=== PATIENT | female | born 1960 | race Caucasian/White ===

== ENCOUNTER 2020-06-20 15:01 | Emergency (ER) | payer BC ==
--- NOTE | 2020-06-20 15:40 | EDM.PDOC ---
ED HPI GENERAL MEDICAL PROBLEM - General Chief Complaint: Skin Complaint Stated Complaint: SEEPAGE Time Seen by Provider: 06/20/20 15:25 Source of Information: Reports: Patient, Family, Old Records, RN History Limitations: Reports: No Limitations - History of Present Illness INITIAL COMMENTS - FREE TEXT/NARRATIVE: 59 yo female with endstage CA now on hospice was referred to the ER today for increased drainage from a tumor on her R upper/anterior chest. Onset: Gradual Duration: Day(s):, Getting Worse Location: Reports: Chest Quality: Reports: Dull Severity: Mild Improves with: Reports: None Worsens with: Reports: Other (time) Context: Reports: Other (See HPI) Associated Symptoms: Reports: No Other Symptoms Treatments IMMUNOLOGY SPECIALIST: Reports: Other (see below) (none) - Related Data Allergies Allergy/AdvReac Type Severity Reaction Status Date / Time azithromycin Allergy Rash Verified 05/09/20 10:11 ED ROS GENERAL - Review of Systems Review Of Systems: See Below Constitutional: Reports: No Symptoms Skin: Reports: Wound (surgical wound R upper/anterior chest with drainage.) ED EXAM, SKIN/RASH Exam: See Below Exam Limited By: No Limitations General Appearance: Alert, No Apparent Distress, Thin Skin: Warm, Dry, Normal Color, No Rash, Wound/Incision (There is a large tumor present to the R upper chest. At the lower edge of this tumor is a surgical wound that is about 1 cm in length and linear/horizontal. There is dark, bloody drainage from this wound that is greater than the absorptive capacity of her current dressing so that it has drained onto her clothing. ) Location, Skin: Chest Characteristics: Linear Associated features: No: Warmth, Lymphangitis Course - Vital Signs Text/Narrative:: Wound cleaned and dressing changed by RN. Last Recorded V/S: Last Vital Signs Temp 36.4 C 06/20/20 15:01 Pulse 101 H 06/20/20 15:01 Resp 20 06/20/20 15:01 BP 102/73 06/20/20 15:01 Pulse Ox 96 06/20/20 15:01 Departure - Departure Time of Disposition: 16:00 Disposition: Home, Self-Care 01 Condition: Good Clinical Impression: Wound drainage - Discharge Information *PRESCRIPTION DRUG MONITORING PROGRAM REVIEWED*: Not Applicable *COPY OF PRESCRIPTION DRUG MONITORING REPORT IN PATIENT REJI: Not Applicable Referrals: Vidhya Berrios PA-C [Primary Care Provider] - Forms: ED Department Discharge Additional Instructions: Change the dressing as needed to catch the accumulating wound drainage. Stay in touch with your doctor regarding any concerns that arise. Sepsis Event Note (ED) - Evaluation Sepsis Screening Result: No Definite Risk - Focused Exam Vital Signs: Vital Signs Temp Pulse Resp BP Pulse Ox 06/20/20 15:01 36.4 C 101 H 20 102/73 96
== END 2020-06-20 16:15 | disposition home or self-care (01) ==
LOC: FB.ED 15:01
DX: L76.22 Postprocedural hemorrhage of skin and subcutaneous tissue following other procedure (principal); Z88.0 Allergy status to penicillin
CPT/HCPCS: 99282

== ENCOUNTER 2020-06-25 04:53 | Emergency (ER) | payer SELFPAY ==
--- NOTE | 2020-06-25 05:48 | EDM.PDOC ---
ED HPI GENERAL MEDICAL PROBLEM - General Chief Complaint: General Time Seen by Provider: 06/25/20 05:35 Source of Information: Reports: Patient, Family (Patient's ) History Limitations: Reports: Other (Patient has tracheostomy.) - History of Present Illness INITIAL COMMENTS - FREE TEXT/NARRATIVE: 59-year-old female with metastatic, terminal head and neck cancer is status post nail 06/15/2020 who presents to the emergency department via private vehicle with her secondary to his shortness of breath with secretions in her trachea. They have been set up with home suctioning and the reports that he was really never trained how to do this or shown how to do this and the patient did begin to have some secretions and some upper airway noise and sounds yesterday at about noon and he attempted to suction the patient and was unable to get any secretions out. He states that he had the home health nurse telling him how to do this over the phone he was really sure that he was doing it correctly. He tried again at about 8 PM last night and was again unable to get any secretions with suctioning. This morning at approximately 4 AM the patient was having worse gurgling with breathing and asked her to bring her to the emergency department for assistance. Upon arrival here her O2 saturations are 97% on room air and she had no increased work of breathing. There were upper airway sounds and she did sound as if she needed to be suctioned. I did discuss this at some length with the patient and with the patient's and the patient has not set up for hospice as yet, that is her intentions. She and her wound really only one her to be suctioned and for the to have some training in suctioning the tracheostomy and care of the tracheostomy. She really is having no new pain and not really able to quantitate or qualitate this. There are no other associated signs or symptoms. There are no other modifying factors. Onset: Other Duration: Constant Location: Reports: Other (No pain) Quality: Reports: Other (Not applicable.) Improves with: Reports: None Worsens with: Reports: None Context: Reports: Other (As above.) Associated Symptoms: Reports: No Other Symptoms Treatments LINING BASTER: Reports: Other (see below) (Nothing.) - Related Data Allergies Allergy/AdvReac Type Severity Reaction Status Date / Time azithromycin Allergy Rash Verified 05/09/20 10:11 Home Meds: Home Meds Acetaminophen [Tylenol 160 MG/5 ML Liq] 20 ml PO Q4HR PRN 06/25/20 [History] Ibuprofen 400 mg PO Q6H PRN 06/25/20 [History] oxyCODONE HCl [Oxycodone HCl] 5 mg PO Q3H PRN 06/25/20 [History] Past Medical History HEENT History: Reports: Sinusitis Other HEENT History: hx throat CA, has trach. Respiratory History: Reports: COPD Oncologic (Cancer) History: Reports: Metastatic, Other (See Below) Other Oncologic History: hx throat CA, has trach - Infectious Disease History Infectious Disease History: Reports: Chicken Pox, Measles, Mumps - Past Surgical History Respiratory Surgical History: Reports: Tracheostomy Social & Family History - Tobacco Use Tobacco Use Status *Q: Former Tobacco User - Caffeine Use Caffeine Use: Reports: None - Alcohol Use Alcohol Use History: No - Recreational Drug Use Recreational Drug Use: No - Living Situation & Occupation Living situation: Reports: ED ROS GENERAL - Review of Systems Review Of Systems: See Below Constitutional: Reports: No Symptoms HEENT: Reports: Other (Oral secretions) Respiratory: Reports: Shortness of Breath (Secondary to trachea secretions. He appears in no acute respiratory distress at present.) Cardiovascular: Reports: No Symptoms Endocrine: Reports: No Symptoms GI/Abdominal: Reports: No Symptoms : Reports: No Symptoms Musculoskeletal: Reports: No Symptoms Skin: Reports: No Symptoms Neurological: Reports: No Symptoms Hematologic/Lymphatic: Reports: No Symptoms ED EXAM, GENERAL - Physical Exam Exam: See Below Exam Limited By: No Limitations General Appearance: Alert, Mild Distress, Cachetic, Other (Appears in some pain) Eye Exam: Bilateral Eye: EOMI, Normal Inspection Ears: Normal External Exam, Hearing Grossly Normal Ear Exam: Bilateral Ear: Auricle Normal Nose: Normal Inspection, Normal Mucosa, No Blood Throat/Mouth: Other (Take aspirin and placed) Head: Atraumatic, Normocephalic Neck: Supple, Full Range of Motion Respiratory/Chest: No Respiratory Distress, Lungs Clear (There are some upper ai rway noises.) Cardiovascular: Normal Peripheral Pulses, Regular Rate, Rhythm, No Murmur Peripheral Pulses: 2+: Radial (L), Radial (R) GI/Abdominal: Normal Bowel Sounds, Soft, Non-Tender Back Exam: Normal Inspection, Full Range of Motion Extremities: Normal Inspection, Normal Range of Motion, No Pedal Edema, Normal Capillary Refill Neurological: Alert, Oriented, CN II-XII Intact, Normal Cognition, No Motor/Sensory Deficits Psychiatric: Depressed Mood Skin Exam: Warm, Dry, Intact, Normal Color, No Rash Course - Vital Signs Last Recorded V/S: Last Vital Signs Temp 35.6 C L 06/25/20 05:06 Pulse 105 H 06/25/20 05:06 Resp 20 06/25/20 05:06 BP 118/66 06/25/20 05:06 Pulse Ox 97 06/25/20 05:06 - Re-Assessments/Exams Free Text/Narrative Re-Assessment/Exam: 06/25/20 06:00: I had discussed with the patient and with her significant other about the level of care than they were and really the patient is heading toward completion for hospice cares and they would want help with suctioning her trach the needs instruction on suctioning the tracheostomy. Therefore, the nursing staff has used are portable suction device which is very much like their home suction device to show the suctioning of the trachea and there was quite a bit of secretions that were obtained and the patient felt much better following this and she sounded much better. She remains respiratory stable. The patient is stable for discharge at this point. Departure - Departure Time of Disposition: 06:08 Disposition: Home, Self-Care 01 Condition: Fair (Improved) Clinical Impression: Head and neck cancer, End stage management - Discharge Information Instructions: Palliative Care Referrals: PCP,None [Primary Care Provider] - Forms: ED Department Discharge Additional Instructions: Suctioning of the tracheostomy and care of the tracheostomy as shown by the emergency department nursing staff. Follow-up with the home health nurse. Sepsis Event Note (ED) - Evaluation Sepsis Screening Result: No Definite Risk - Focused Exam Vital Signs: Vital Signs Temp Pulse Resp BP Pulse Ox 06/25/20 05:06 35.6 C L 105 H 20 118/66 97
== END 2020-06-25 06:15 | disposition home or self-care (01) ==
LOC: FB.ED 04:53
CPT/HCPCS: 99283

== ENCOUNTER 2020-06-27 10:10 | Inpatient (IN) | payer BC ==
[2020-06-27] MEDS ORDERED: Morphine 2 MG/ML SYRINGE IVPUSH ONE (10:40)
--- NOTE | 2020-06-27 10:49 | EDM.PDOC ---
ED HPI GENERAL MEDICAL PROBLEM - General Stated Complaint: FELL, WEAK Time Seen by Provider: 06/27/20 10:30 Source of Information: Reports: Patient History Limitations: Reports: No Limitations - History of Present Illness INITIAL COMMENTS - FREE TEXT/NARRATIVE: Patient presented to the ED with her because of generalized body weakness and pain. She is taking oxycodone for pain but is not enough to control her pain. 2 days ago she fell and hit her head buts was not evaluated in the ED. There was no LOC after the fall. She was diagnosed with stage 4 head/neck cancer October of 2019. She underwent surgery,chemotherapy, and radiation and now she is on palliative care at home. A home health nurse visits her one a week and her does the remaining care. Family can't take care of her anymore and wanted her to be under hospice care in the [facility] setting. right chest Pain Score (Numeric/FACES): 4 - Related Data Allergies Allergy/AdvReac Type Severity Reaction Status Date / Time azithromycin Allergy Rash Verified 06/27/20 10:51 Home Meds: Home Meds Ibuprofen 400 mg GTUBE Q6H PRN 06/25/20 [History] oxyCODONE HCl [Oxycodone HCl] 5 mg GTUBE Q3H PRN 06/25/20 [History] Acetaminophen [Tylenol] 650 mg GTUBE Q4H PRN 06/28/20 [History] Cetirizine [ZyrTEC] 10 mg GTUBE DAILY 06/28/20 [History] Gabapentin 125 mg GTUBE BID 06/28/20 [History] LORazepam [Ativan] 1 mg GTUBE Q4H PRN 06/28/20 [History] Montelukast Sodium [Singulair] 10 mg GTUBE DAILY 06/28/20 [History] Ondansetron [Ondansetron ODT] 4 mg GTUBE Q6H PRN 06/28/20 [History] Prochlorperazine [Compazine] 10 mg GTUBE Q6H PRN 06/28/20 [History] Simvastatin 20 mg GTUBE BEDTIME 06/28/20 [History] Triamcinolone Acetonide [Nasacort] 1 puff INH DAILY 06/28/20 [History] buPROPion HCL [Bupropion HCl Sr] 300 mg GTUBE DAILY 06/28/20 [History] metroNIDAZOLE [metroNIDAZOLE 0.75% Gel] 1 dose TOP Q12H PRN 06/28/20 [History] polyethylene glycoL 3350 [Polyethylene Glycol 3350] 17 gm GTUBE DAILY PRN 06/28/20 [History] Past Medical History HEENT History: Reports: Sinusitis Other HEENT History: hx throat CA, has trach. Respiratory History: Reports: COPD Oncologic (Cancer) History: Reports: Metastatic, Other (See Below) Other Oncologic History: hx throat CA, has trach - Infectious Disease History Infectious Disease History: Reports: Chicken Pox, Measles, Mumps - Past Surgical History Head Surgeries/Procedures: Reports: None HEENT Surgical History: Reports: Other (See Below) Other HEENT Surgeries/Procedures: has trach Respiratory Surgical History: Reports: Tracheostomy Social & Family History - Family History Family Medical History: No Pertinent Family History - Caffeine Use Caffeine Use: Reports: None - Living Situation & Occupation Living situation: Reports: ED ROS GENERAL - Review of Systems Review Of Systems: See Below Constitutional: Reports: Weakness HEENT: Reports: No Symptoms Respiratory: Reports: No Symptoms Cardiovascular: Reports: No Symptoms Endocrine: Reports: No Symptoms GI/Abdominal: Reports: No Symptoms : Reports: No Symptoms Musculoskeletal: Reports: No Symptoms Skin: Reports: Wound Psychiatric: Reports: No Symptoms Hematologic/Lymphatic: Reports: No Symptoms ED EXAM, GENERAL - Physical Exam Exam: See Below Exam Limited By: No Limitations General Appearance: Alert, No Apparent Distress Ears: Normal External Exam, Normal Canal Nose: Normal Inspection, Normal Mucosa, No Blood Throat/Mouth: Normal Inspection, Normal Lips, Normal Teeth Head: Atraumatic, Normocephalic Neck: Supple, Non-Tender (tracheostomy tube in place), Other Cardiovascular: Normal Peripheral Pulses, Regular Rate, Rhythm, No Edema GI/Abdominal: Normal Bowel Sounds, Soft, Non-Tender, No Organomegaly Back Exam: Normal Inspection, Full Range of Motion Extremities: Normal Inspection, Normal Range of Motion, Non-Tender Neurological: Alert, Oriented Psychiatric: Depressed Mood Skin Exam: Warm, Other (open wound on the right ant chest draining with serosanguinous fluid and some pus) Course - Vital Signs Text/Narrative:: Labs/CXR result was discussed with aptient and her Morphine 1 mg IV NS 1 L bolus KCL 20 meq IV Last Recorded V/S: Last Vital Signs Temp 36.3 C 06/28/20 00:13 Pulse 108 H 06/28/20 00:13 Resp 16 06/28/20 00:13 BP 86/58 L 06/28/20 00:13 Pulse Ox 90 L 06/28/20 00:13 - Orders/Labs/Meds Orders: Active Orders 24 hr Category Date Time Status Sodium Chloride 0.9% [Saline Flush] Med 06/27/20 10:39 Active 10 ml FLUSH ASDIRECTED PRN Saline Lock Insert [OM.PC] Routine Oth 06/27/20 10:39 Ordered Medication Orders Ibuprofen (Motrin 100 Mg/5 Ml Susp) 400 mg GTUBE TID [facility] Last Admin: 06/28/20 09:15 Dose: 400 mg Documented by: Admin: 06/27/20 20:53 Dose: 400 mg Documented by: KRYSTINA Morphine Sulfate (Morphine) 2 mg IVPUSH Q2H PRN PRN Reason: Pain Last Admin: 06/28/20 09:06 Dose: 2 mg Documented by: Admin: 06/28/20 01:40 Dose: 2 mg Documented by: Admin: 06/27/20 15:39 Dose: 2 mg Documented by: DAV Morphine Sulfate (Morphine) 7.5 mg GTUBE Q6H [facility] Last Admin: 06/28/20 09:12 Dose: 7.5 mg Documented by: DAV Sodium Chloride (Saline Flush) 10 ml FLUSH ASDIRECTED PRN PRN Reason: Keep Vein Open Last Admin: 06/28/20 09:19 Dose: 10 ml Documented by: DAV Labs: Laboratory Tests 06/27/20 06/27/20 06/27/20 Range/Units 10:55 10:55 11:15 WBC 17.0 H (3.0-10.3) x10-3/uL RBC 3.96 (3.60-5.20) x10(6)uL Hgb 11.0 L (11.4-15.5) g/dL Hct 36.0 (34.2-48.2) % MCV 91.0 (76.7-100.5) fL MCH 27.6 (23.9-33.9) pg MCHC 30.4 L (31.9-34.8) g/dL RDW 16.1 (12.3-16.5) % Plt Count 204 (151-488) x10(3)uL MPV 10.0 (7.1-12.4) fL Add Manual Diff Yes Neutrophils % (Manual) 75 (46-82) % Band Neutrophils % 11 H (0-6) % Lymphocytes % (Manual) 9 L (13-37) % Monocytes % (Manual) 5 (4-12) % Sodium 158 H (135-145) mmol/L Potassium 2.6 L* (3.5-5.3) mmol/L Chloride 113 H (100-110) mmol/L Carbon Dioxide 36 H (21-32) mmol/L BUN 85 H (7-18) mg/dL Creatinine 1.8 H (0.55-1.02) mg/dL Est Cr Clr Drug Dosing 19.75 mL/min Estimated GFR (MDRD) 29 L (>60) BUN/Creatinine Ratio 47.2 H (9-20) Glucose 154 H (80-116) mg/dL Calcium 17.4 H* (8.6-10.2) mg/dL Total Bilirubin 0.4 (0.1-1.3) mg/dL AST 23 (5-25) IU/L ALT 34 (12-36) U/L Alkaline Phosphatase 201 H (56-112) IU/L Total Protein 7.1 (6.0-8.0) g/dL Albumin 2.2 L (3.5-5.2) g/dL Globulin 4.9 g/dL Albumin/Globulin Ratio 0.5 SARS-CoV-2 RNA (MILAGROS) Negative (NEGATIVE) Meds: Medications Generic Name Dose Route Start Last Admin Trade Name Shine PRN Reason Stop Dose Admin Ibuprofen 400 mg 06/27/20 21:00 06/28/20 09:15 Motrin 100 Mg/5 Ml Susp GTUBE 400 mg TID BRIDGET Administration Morphine Sulfate 2 mg 06/27/20 14:57 06/28/20 09:06 Morphine IVPUSH 2 mg Q2H PRN Administration Pain Morphine Sulfate 7.5 mg 06/28/20 09:00 06/28/20 09:12 Morphine GTUBE 7.5 mg Q6H BRIDGET Administration Sodium Chloride 10 ml 06/27/20 10:39 06/28/20 09:19 Saline Flush FLUSH 10 ml ASDIRECTED PRN Administration Keep Vein Open Discontinued Medications Generic Name Dose Route Start Last Admin Trade Name Freq PRN Reason Stop Dose Admin Acetaminophen 650 mg 06/27/20 13:48 Tylenol PO Q4H PRN Pain Acetaminophen 650 mg 06/27/20 15:02 Tylenol GTUBE Q4H PRN Pain Enoxaparin Sodium 40 mg 06/27/20 12:45 Lovenox SUBCUT Q24H BRIDGET Enoxaparin Sodium 30 mg 06/27/20 13:00 Lovenox SUBCUT Q24H BRIDGET Sodium Chloride 1,000 mls @ 999 mls/hr 06/27/20 11:00 06/27/20 11:00 Normal Saline IV 999 mls/hr ASDIRECTED BRIDGET Administration Potassium Chloride 20 meq/ 100 mls @ 50 mls/hr 06/27/20 11:57 06/27/20 12:13 Premix IV 06/27/20 13:56 50 mls/hr ONETIME ONE Administration Potassium Chloride/Sodium Chloride 1,000 mls @ 125 mls/hr 06/27/20 12:15 Normal Saline With 20 Meq Kcl IV ASDIRECTED BRIDGET Sodium Chloride 1,000 mls @ 125 mls/hr 06/27/20 12:45 Normal Saline IV ASDIRECTED BRIDGET Potassium Chloride/Sodium Chloride 1,000 mls @ 150 mls/hr 06/27/20 13:10 06/27/20 20:52 Normal Saline With 20 Meq Kcl IV 06/28/20 03:49 150 mls/hr Q8H BRIDGET Administration Sodium Chloride 1,000 mls @ 120 mls/hr 06/27/20 14:15 06/27/20 12:15 Normal Saline IV 120 mls/hr ASDIRECTED BRIDGET Administration Ibuprofen 100 mg 06/27/20 13:48 Motrin 100 Mg/5 Ml Susp PO Q6H PRN Pain Ibuprofen 400 mg 06/27/20 14:04 Motrin 100 Mg/5 Ml Susp PO Q6H PRN Pain Ibuprofen 400 mg 06/27/20 15:03 Motrin 100 Mg/5 Ml Susp GTUBE Q6H PRN Pain Lorazepam 1 mg 06/27/20 14:11 Ativan IVPUSH Q8H PRN Anxiety Morphine Sulfate 1 mg 06/27/20 10:40 06/27/20 12:13 Morphine IVPUSH 06/27/20 10:41 1 mg ONETIME ONE Administration Morphine Sulfate 1 mg 06/27/20 14:12 Morphine IVPUSH Q2H PRN Pain Morphine Sulfate 7.5 mg 06/27/20 15:18 06/27/20 15:42 Morphine GTUBE 7.5 mg Q4H PRN Administration MODERATE-SEVERE PAIN Oxycodone HCl 5 mg 06/27/20 13:49 Oxycodone PO Q3H PRN Pain Senna/Docusate Sodium 1 tab 06/27/20 12:31 Senna Plus PO BID PRN Constipation Departure - Departure Time of Disposition: 12:00 Disposition: Admitted As Inpatient 68 Condition: Good Clinical Impression: Head and neck cancer, Dehydration, Hypokalemia, Fall, MACHO (acute kidney injury) - Discharge Information - My Orders Last 24 Hours: My Active Orders 06/27/20 10:39 Sodium Chloride 0.9% [Saline Flush] 10 ml FLUSH ASDIRECTED PRN Saline Lock Insert [OM.PC] Routine - Assessment/Plan Last 24 Hours: My Active Orders 06/27/20 10:39 Sodium Chloride 0.9% [Saline Flush] 10 ml FLUSH ASDIRECTED PRN Saline Lock Insert [OM.PC] Routine
[2020-06-27] MEDS ORDERED: Sodium Chloride 0.9% 1,000 ML IV SCH ×3 (11:00→14:15)
[2020-06-27] MEDS ORDERED: Potassium Chloride 20 MEQ in Premix Bag 1 BAG IV ONE (11:57)
[2020-06-27] MEDS ORDERED: NS + KCl 20mEq/L 1,000 ML IV SCH (12:15)
--- NOTE | 2020-06-27 12:25 | CR ---
INDICATION: Cough in a patient with head and neck cancer. CHEST ONE VIEW: Portable AP upright view of the chest 06/27/20 was compared with 06/09/20 supine image and reveals areas of infiltrate and possible nodular densities scattered about the lungs. Previous nodule in the right lower middle lung field appears less prominent than on the previous study with a nodule behind the heart in the left lower lobe appearing similar. Nodularity at the right medial lung base also appears similar. No gross consolidating pneumonia or effusion is identified on a definite acute basis. However, it is difficult to exclude areas of patchy bronchopneumonia with the areas of nodular infiltration and heavy markings present. The heart did not appear enlarged. Tracheostomy tube is now noted in place. The aorta is mildly tortuous with calcification in the arch. IMPRESSION: 1. Findings remain compatible with metastatic disease in the lungs, although one area of nodularity in the lower middle lung field on the right appears less prominent. 2. It is difficult to exclude areas of patchy bronchopneumonia. MTDD
[2020-06-27] MEDS ORDERED: Enoxaparin 40 MG/0.4 ML Syringe SUBCUT SCH (12:45)
[2020-06-27] MEDS ORDERED: Enoxaparin 30 MG/0.3 ML Syringe SUBCUT SCH (13:00)
[2020-06-27] MEDS: NS + KCl 20mEq/L 1,000 ML IV SCH ×2 (13:45→20:52)
[2020-06-27] MEDS ORDERED: Ibuprofen Susp 100 MG/5 ML 5 ML UD Cup PO PRN ×2 (13:48→14:04)
[2020-06-27] MEDS ORDERED: Acetaminophen Soln 650 MG/20.3 ML UD Cup PO PRN (13:48)
[2020-06-27] MEDS ORDERED: oxyCODONE 5 MG Tab PO PRN (13:49)
[2020-06-27] MEDS ORDERED: LORazepam 2 MG/ML SDV IVPUSH PRN (14:11)
[2020-06-27] MEDS ORDERED: Morphine 2 MG/ML SYRINGE IVPUSH PRN (14:12)
[2020-06-27] MEDS ORDERED: Acetaminophen Soln 650 MG/20.3 ML UD Cup GTUBE PRN (15:02)
[2020-06-27] MEDS ORDERED: MORPHINE 10 MG/5 ML JTUBE PRN (15:02)
[2020-06-27] MEDS ORDERED: Ibuprofen Susp 100 MG/5 ML 5 ML UD Cup GTUBE PRN (15:03)
[2020-06-27] MEDS ORDERED: Morphine 15 MG Tab GTUBE PRN (15:18)
[2020-06-27] MEDS: Morphine 2 MG/ML SYRINGE IVPUSH PRN (15:39)
[2020-06-27] MEDS: Ibuprofen Susp 100 MG/5 ML 5 ML UD Cup GTUBE SCH (20:53)
--- NOTE | 2020-06-27 21:27 | HP ---
ADMISSION DATE: 06/27/2020 HISTORY: Naima is a 59-year-old woman who was found to have oral cancer in 2019. This was treated with surgery and radiation. She required a tracheostomy and G-tube. She has been at home cared for by her mother and , but has gone steadily downhill. They can no longer control her pain at home, and she is brought in for admission with plans for hospice cares. PHYSICAL EXAMINATION: GENERAL: She is pale, thin, cachectic, and only mouths words. VITAL SIGNS: Blood pressure 105/53, pulse 105, respirations 18, temperature 97.1, weight 74 pounds. SKIN: Shows a 3 cm gaping wound at the right clavicle with another palpable lump, lower right chest. HEENT: Oral exam reveals she cannot open more than 1 cm and has minimal tongue movement. NECK: A tracheostomy is in place. LUNGS: She has rales bilaterally. HEART: Regular, but tachycardic. ABDOMEN: Firm tube with a clean abdominal entry site. EXTREMITIES: Cachectic. 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 PLAN: She is admitted to get her more comfortable with pain control. We will also temporarily replace her fluids and potassium IV. Again, with comfort measures in mind, we will consult hospice and anticipate discharge to the skilled nursing under hospice cares. /[id number] AIDEN/JAMEEL
[2020-06-28] MEDS: Morphine 2 MG/ML SYRINGE IVPUSH PRN ×3 (01:40→17:37)
[2020-06-28] MEDS: Morphine 15 MG Tab GTUBE SCH ×3 (09:12→20:03)
[2020-06-28] MEDS: Ibuprofen Susp 100 MG/5 ML 5 ML UD Cup GTUBE SCH ×3 (09:15→20:04)
[2020-06-28] MEDS: Sodium Chloride 0.9% 10 ML Syringe FLUSH PRN (09:19)
[2020-06-28] MEDS ORDERED: Scopolamine 1.5 MG Transdermal Patch TOP SCH (09:45)
--- NOTE | 2020-06-28 11:34 | PN ---
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 On admission, she was quite dehydrated. Her potassium was low. She had hydration replaced with IV fluid as well as IV potassium. She was started on morphine suspension through her G-tube and supplemented by IV morphine. Naima seemed to have a comfortable night and this morning has indicated she has recurrence of her pain. She was now given an additional dose of both G-tube and IV morphine. PHYSICAL EXAMINATION: VITAL SIGNS: Blood pressure 86/58, pulse 108 and regular, temperature 97.3, respirations 16. HEART: Regular, slightly tachycardic. ABDOMEN: Had normal bowel sounds present. EXTREMITIES: Ankle showed no edema. ASSESSMENT: 1. Widely metastatic squamous cell carcinoma with significant pain. 2. Recent dehydration and hypokalemia. PLAN: Naima is DNR/DNI. I will convert her morphine now to a scheduled basis of 7.5 mg per G-tube every 6 hours, again, supplemented by IV morphine on a p.r.n. basis. Poor prognosis is known by the patient who has requested DNR status and by her mother and . /[id number] AIDEN/JAMEEL
[2020-06-29] MEDS: Morphine 15 MG Tab GTUBE SCH ×4 (02:20→21:17)
[2020-06-29] MEDS: Ibuprofen Susp 100 MG/5 ML 5 ML UD Cup GTUBE SCH ×3 (09:01→21:15)
[2020-06-29] MEDS: Sodium Chloride 0.9% 10 ML Syringe FLUSH PRN (09:08)
--- NOTE | 2020-06-29 12:20 | PN ---
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 She came in with severe dehydration, hypokalemia, and uncontrolled pain. She was initially treated with IV fluids, potassium replacement, and IV and G-tube morphine. The family has decided to provide just comfort measures for her, so her IV fluids were discontinued. She continues to receive morphine through the G-tube supplemented by intravenous morphine for breakthrough pain. This morning, she opened her eyes and grimaced when spoken to. She did squeeze my hand slightly, but otherwise gave no additional verbal response. Temperature 101, pulse 126, blood pressure 81/55, respirations were easy, and other than occasional grimace, she looked fairly comfortable. ASSESSMENT: Widely metastatic squamous cell cancer with inadequate pain control. PLAN: At this time, we will adjust her morphine by G-tube and continue the supplemental IV dosing until we get her completely comfortable. The family is aware of her poor prognosis and she is DNR/DNI status. /[id number] AIDEN/JAMEEL
[2020-06-30] MEDS: Morphine 15 MG Tab GTUBE SCH ×3 (03:37→09:17)
[2020-06-30] MEDS ORDERED: Scopolamine 1.5 MG Transdermal Patch TRDERM ONE (08:45)
[2020-06-30] MEDS: Ibuprofen Susp 100 MG/5 ML 5 ML UD Cup GTUBE SCH (09:04)
--- NOTE | 2020-06-30 11:45 | PN ---
DATE SEEN: 06/30/2020 HISTORY: Naima is a 59-year-old woman who is admitted for weakness, pain control, severe dehydration, hypokalemia. 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 Yesterday, she required supplementation of her morphine that is being given by tube feeding with intravenous morphine. This seemed to keep her comfortable through most of the day and she slept adequately overnight. This morning, she appears somewhat weaker. She has more gurgling respirations, but is not doing any grimacing at this time, indicating the need for additional morphine. PHYSICAL EXAMINATION: VITAL SIGNS: Shows her temp to be 99, pulse 114, blood pressure low at 70/46. ASSESSMENT: Widely metastatic squamous cell carcinoma. PLAN: We will add a second scopolamine patch for control of secretions. We will still keep available IV morphine to supplement her 7.5 mg in the G-tube if necessary. The family is aware of her short life expectancy. /[id number] AIDEN/JAMEEL
[2020-07-01] MEDS ORDERED: Scopolamine 1.5 MG Transdermal Patch TOP SCH (10:00)
--- NOTE | 2020-07-07 09:48 | DISCH ---
DISCHARGE DATE: 06/30/2020 PRIMARY FINAL DIAGNOSIS: Metastatic squamous cell carcinoma of oral origin. 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 She had a tube for tube feeding and morphine was instituted per G-tube. This was supplemented by IV doses of morphine to get her pain under control. She had requested DNR/DNI status and comfort measures only, which was concurred with by the family. She also had application of scopolamine patch to control her oral secretions. The patient did receive pain control with her combination of medications and she was comfortable. She on 06/30/2020 with family in attendance. Arrangements will be made per the home. /[id number] AIDEN/JAMEEL
== END 2020-06-30 12:15 | disposition expired | DRG 861 ==
LOC: EDBD 10:10 → FB.ED 10:10 → FB.MS 12:23
PROVIDERS: ADMIT Family Medicine; ATTEND Family Medicine
DX: G89.3 Neoplasm related pain (acute) (chronic) (principal); E86.0 Dehydration; N17.9 Acute kidney failure, unspecified; Z51.5 Encounter for palliative care; Z68.1 Body mass index [BMI] 19.9 or less, adult; C06.9 Malignant neoplasm of mouth, unspecified; Z20.822 Contact with and (suspected) exposure to COVID-19; R53.1 Weakness; J44.9 Chronic obstructive pulmonary disease, unspecified; W19.XXXA Unspecified fall, initial encounter; Z66 Do not resuscitate; E87.6 Hypokalemia; J32.9 Chronic sinusitis, unspecified; C76.0 Malignant neoplasm of head, face and neck; R64 Cachexia; Z88.1 Allergy status to other antibiotic agents; Z79.899 Other long term (current) drug therapy; Z92.3 Personal history of irradiation; Z98.890 Other specified postprocedural states; Z93.1 Gastrostomy status; Z93.0 Tracheostomy status
CPT/HCPCS: 36415; 71045; 80053; 85025; 96374; 96375; 99222; 99231; 99232; 99284; 99285-25; A9270-GY; J2270; J3480; J7030; U0002